=== PATIENT | male | born 1975 | race Caucasian/White ===

== ENCOUNTER 2017-04-03 10:27 | Emergency (ER) | payer SELFPAY ==
--- NOTE | 2017-04-03 10:31 | UC ---
Back Pain HPI - HPI Summary HPI Summary: 41 YEAR OLD MALE PRESENTS WITH COMPLAINS OF BACK PAIN. - History of Current Complaint Stated Complaint: BACK PAIN Time Seen by Provider: 04/03/17 10:30 - Allergies/Home Medications Allergies/Adverse Reactions: Allergies Allergy/AdvReac Type Severity Reaction Status Date / Time Morphine Allergy Vomiting Verified 04/03/17 10:38 Penicillins Allergy Unknown Verified 04/03/17 10:38 Reaction Details Review of Systems Constitutional: Negative Skin: Negative Eyes: Negative ENT: Negative Respiratory: Negative Cardiovascular: Negative Gastrointestinal: Negative Genitourinary: Negative Motor: Negative Neurovascular: Negative Musculoskeletal: Other: - LOWER BACK PAIN Neurological: Negative Psychological: Negative All Other Systems Reviewed And Are Negative: Yes Physical Exam Triage Information Reviewed: Yes Eye Exam: Normal ENT Exam: Normal Dental Exam: Normal Neck exam: Normal Neck: Positive: 1 Respiratory Exam: Normal Cardiovascular Exam: Normal Abdominal Exam: Normal Musculoskeletal: Positive: Other: - LOWER BACK PAIN Neurological Exam: Normal Psychological Exam: Normal Skin Exam: Normal Back Pain Course/Dx - Differential Dx/Diagnosis Provider Diagnoses: LOWER BACK PAIN Discharge - Discharge Plan Condition: Stable Disposition: HOME Prescriptions: Methocarbamol TAB* [Robaxin 500 MG TAB*] 500 mg PO TID PRN #30 tab PRN Reason: Spasms - Back Methylprednisolone [Medrol Dosepak 4 MG*] 4 mg PO .SEE [employer] INSTRUCTION #21 tab Patient Education Materials: Low Back Strain (ED) Forms: *Work Release Referrals: Non Staff,Doctor [Primary Care Provider] -
[2017-04-03 10:37] VITALS: BP 109/73
== END 2017-04-03 10:58 | disposition home or self-care (01) ==
LOC: UCCORT 10:27
DX: M54.5 Low back pain (principal); Z88.5 Allergy status to narcotic agent; Z88.0 Allergy status to penicillin
CPT/HCPCS: 99202; G0463

== ENCOUNTER 2017-05-22 17:13 | Emergency (ER) | payer SELFPAY ==
[2017-05-22 17:41] VITALS: BP 134/76
--- NOTE | 2017-05-22 18:13 | UC ---
[facility] Dental HPI - History of Current Complaint Chief Complaint: UCDentalProblem Stated Complaint: L LOWER JAW/EAR PAIN Time Seen by Provider: 05/22/17 17:59 - Allergies/Home Medications Allergies/Adverse Reactions: Allergies Allergy/AdvReac Type Severity Reaction Status Date / Time Morphine Allergy Vomiting Verified 05/22/17 17:37 Home Medications: Home Medications Ibuprofen TAB* [Advil TAB*] 1,000 mg PO ONCE 05/22/17 [History Confirmed ] Penicillin VK TAB* [Penicillin VK 250 mg Tab*] 500 mg PO ONCE 05/22/17 [History Confirmed 05/22/17] PMH/Surg Hx/FS Hx/Imm Hx - Surgical History Surgical History: None - Social History Alcohol Use: None Substance Use Type: None Smoking Status (MU): Heavy Every Day Tobacco Smoker Type: Cigarettes Amount Used/How Often: 1 1/2 PPD Length of Time of Smoking/Using Tobacco: Since Age 7 - Immunization History Most Recent Influenza Vaccination: Not the Season Physical Exam Vital Signs: Initial Vital Signs Temp 98.1 F 05/22/17 17:35 Pulse 74 05/22/17 17:35 Resp 16 05/22/17 17:35 BP 134/76 05/22/17 17:35 Pulse Ox 100 05/22/17 17:35
== END 2017-05-22 18:31 | disposition home or self-care (01) ==
LOC: UCCORT 17:13
DX: R68.84 Jaw pain (principal); F17.210 Nicotine dependence, cigarettes, uncomplicated; Z88.5 Allergy status to narcotic agent
CPT/HCPCS: 99212; G0463